=== PATIENT | female | born 1990 | race African-American/Black ===

== ENCOUNTER 2018-03-08 17:19 | Inpatient (IN) | payer OTHER ==
[~2018-03-08] VITALS: Ht 162.6 cm; Wt 93.4 kg
[~2018-03-08 17:19] MED LIST: IBUPROFEN800 M1 PO
--- NOTE | 2018-03-08 18:09 | History & Physical Pre-Op ---
General Information and HPI History of Present Illness: This patient is a 27-year-old 8 para 3 EDC 03/09/2018 at 39 weeks and 6 days who presents with spontaneous rupture of membranes clear fluid in active labor. 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 Past OB history significant for 3. Allergies/Medications Allergies: Coded Allergies: No Known Allergies (05/28/16) Home Med list Ibuprofen 800 MG TABLET 800 MG PO Q6P PRN UTERINE CRAMPING Past History Surgical History Pertinent Surgical History: D&C Past Family/Social History Psychosocial History Smoking Status: Former Smoker Review of Systems Review of Systems Constitutional: Reports: no symptoms. EENTM: Reports: no symptoms. Cardiovascular: Reports: no symptoms. Respiratory: Reports: no symptoms. GI: Reports: abdominal pain. Genitourinary: Reports: see HPI. Musculoskeletal: Reports: back pain. Skin: Reports: no symptoms. Neurological/Psychological: Reports: no symptoms. Hematologic/Endocrine: Reports: no symptoms. Immunologic/Allergic: Reports: no symptoms. All Other Systems: Reviewed and Negative Exam & Diagnostic Data Last 24 Hrs of Vital Signs/I&O Blood pressure 122/78 Physical Exam: HEENT normocephalic atraumatic Chest: Clear to auscultation bilaterally Abdomen: Gravid cephalic estimated weight 7-1/2 pounds Pelvic 9.5 cm -2 station Extremities: No clubbing cyanosis or edema Assessment/Plan Assessment/Plan: Spontaneous rupture of membranes at term Expectant management As Ranked By This Provider Problem List: 1.
[2018-03-08 18:18] LABS: ABSOLUTE BASOPHIL COUNT 0 /CUMM (0.0-0.2); ABSOLUTE EOSINOPHIL COUNT 0.1 /CUMM (0.0-0.7); ABSOLUTE GRANULOCYTE CT 5.4 /CUMM (1.4-6.5); ABSOLUTE LYMPH COUNT 2.1 /CUMM (1.2-3.4); ABSOLUTE MONOCYTE COUNT 0.6 /CUMM (0.10-0.60); BASOPHIL % 0.3 % (0.0-2.0); EOSINOPHIL % 0.8 % (0-5); GRANULOCYTE % 66.1 % (42.2-75.2); HEMATOCRIT 34.1 % (37-47); MEAN CORPUSCULAR HGB 31.2 PG (27.0-31.0); MEAN CORPUSCULAR HGB CONC 32.5 G/DL (33.0-37.0); MEAN CORPUSCULAR VOLUME 95.9 FL (81.0-99.0); MEAN PLATELET VOLUME 12.4 FL (7.4-10.4); PLATELET COUNT 177 /CUMM (130-400); RBC DISTRIBUTION WIDTH 14.6 % (11.5-14.5); RED BLOOD CELL CT 3.56 /CUMM (4.20-5.40); WHITE BLOOD CELL COUNT 8.2 /CUMM (4.8-10.8)
[2018-03-09 07:59] LABS: ABSOLUTE BASOPHIL COUNT 0 /CUMM (0.0-0.2); ABSOLUTE EOSINOPHIL COUNT 0.1 /CUMM (0.0-0.7); ABSOLUTE GRANULOCYTE CT 6.9 /CUMM (1.4-6.5); ABSOLUTE LYMPH COUNT 2.1 /CUMM (1.2-3.4); BASOPHIL % 0.4 % (0.0-2.0); EOSINOPHIL % 1.2 % (0-5); GRANULOCYTE % 68.3 % (42.2-75.2); HEMATOCRIT 30.9 % (37-47); MEAN CORPUSCULAR HGB 31.2 PG (27.0-31.0); MEAN CORPUSCULAR HGB CONC 32.7 G/DL (33.0-37.0); MEAN CORPUSCULAR VOLUME 95.4 FL (81.0-99.0); MEAN PLATELET VOLUME 13.3 FL (7.4-10.4); PLATELET COUNT 153 /CUMM (130-400); RBC DISTRIBUTION WIDTH 14.6 % (11.5-14.5); RED BLOOD CELL CT 3.24 /CUMM (4.20-5.40); WHITE BLOOD CELL COUNT 10.1 /CUMM (4.8-10.8)
[2018-03-10] MEDS ORDERED: IBUPROFEN800 M1 PO (10:27)
--- NOTE | 2018-03-10 10:34 | Labor & Delivery Summary ---
Delivery Summary Vaginal Delivery: Vaginal: vertex Episiotomy/Lacerations: Episiotomy/Lacerations: none Placenta: Placenta: spontanteous, normal, 3 vessel Anesthesia: none Baby's Weight: 7-8 Apgars - 1 Min: 9 Apgars - 5 Min: 9
== END 2018-03-10 11:30 | DRG 560 ==
LOC: CBCO 17:19 → GNO 17:28
PROVIDERS: Obstetrics & Gynecology
PROC: 10E0XZZ Delivery of Products of Conception, External Approach (ICD-10-PCS; principal; 2018-03-08)
DX: O80 Encounter for full-term uncomplicated delivery (principal); Z3A.39 39 weeks gestation of pregnancy; Z37.0 Single live birth
CPT/HCPCS: GNOS; 84112; J3490; J7120

== ENCOUNTER 2018-06-29 21:58 | Emergency (ER) | payer OTHER ==
[2018-06-29 23:12] LABS: ABSOLUTE BASOPHIL COUNT 0 /CUMM (0.0-0.2); ABSOLUTE EOSINOPHIL COUNT 0.1 /CUMM (0.0-0.7); ABSOLUTE LYMPH COUNT 1.3 /CUMM (1.2-3.4); ABSOLUTE MONOCYTE COUNT 0.4 /CUMM (0.10-0.60); BASOPHIL % 0.4 % (0.0-2.0); EOSINOPHIL % 1.2 % (0-5); GRANULOCYTE % 62.8 % (42.2-75.2); HEMATOCRIT 35.8 % (37-47); MEAN CORPUSCULAR HGB 32.6 PG (27.0-31.0); MEAN CORPUSCULAR VOLUME 98.8 FL (81.0-99.0); MEAN PLATELET VOLUME 10.3 FL (7.4-10.4); PLATELET COUNT 197 /CUMM (130-400); RBC DISTRIBUTION WIDTH 13.7 % (11.5-14.5); RED BLOOD CELL CT 3.62 /CUMM (4.20-5.40); WHITE BLOOD CELL COUNT 4.8 /CUMM (4.8-10.8)
--- NOTE | 2018-06-29 23:20 | ED GI/GU/ABDOMINAL COMPLAINT ---
History of Present Illness General Chief Complaint: General Adult Stated Complaint: TOOK PILL AT HOME HEAVY BLEEDING Source: patient Exam Limitations: no limitations Vital Signs & Intake/Output Vital Signs & Intake/Output Vital Signs Date Time Temp Pulse Resp B/P B/P Pulse O2 O2 Flow FiO2 Mean Ox Delivery Rate 06/29 2331 98.3 73 17 115/72 99 Room Air 06/29 2204 98.5 96 17 127/84 99 Room Air ED Intake and Output 06/30 0000 06/29 1200 Intake Total Output Total Balance Patient 181 lb Weight Weight Reported by Patient Measurement Method Allergies Coded Allergies: No Known Allergies (05/28/16) Reconcile Medications Ibuprofen 800 MG TABLET 800 MG PO Q6P PRN UTERINE CRAMPING Triage Note: PT TO ED WITH C/O HEAVY VAGINAL BLEEDING S/P TAKING MEDICAL PILL MIFEPRISTONE AT HOME AT 5 PM TODAY. STATES INSTRUCTIONS TO GO TO ED IF SOAKING THROUGH TWO MAXI PADS/HR FOR 2 HOURS STRAIGHT. REPORTS BASELINE ANEMIA AND IS WORRIED ABOUT BLOOD LOSS. INTERMITTENT LIGHT HEADEDNESS. Triage Nurses Notes Reviewed? yes ? y Is pt currently ? No Onset: Abrupt Duration: hour(s):, constant Timing: single episode today HPI: 28-year-old female comes into the emergency room for further evaluation after take an pill at home. She is approximately 7 weeks . She took the pill around 5 PM. Patient reports that her few hours later the bleeding became very heavy. She's gone through multiple pads and came to the emergency room for further evaluation. She felt slightly lightheaded before but those symptoms resolved. (Russell Ashby) Past History Travel History Traveled to [place] past 21 day No Medical History Any Pertinent Medical History? see below for history Blood Disorders: anemia Surgical History Surgical History: D&C Psychosocial History What is your primary language Luxembourgish Tobacco Use: Never used Family History Hx Contributory? No (Russell Ashby) Review of Systems Review of Systems Constitutional: Reports: no symptoms. EENTM: Reports: no symptoms. Respiratory: Reports: no symptoms. Cardiovascular: Reports: no symptoms. GI: Reports: no symptoms. Genitourinary: Reports: see HPI. Musculoskeletal: Reports: no symptoms. Skin: Reports: no symptoms. Neurological/Psychological: Reports: no symptoms. Hematologic/Endocrine: Reports: see HPI. Immunologic/Allergic: Reports: no symptoms. All Other Systems: Reviewed and Negative (Russell Ashby) Physical Exam Physical Exam General Appearance: well developed/nourished, no apparent distress, alert, awake Head: atraumatic Eyes: Bilateral: normal appearance. Ears, Nose, Throat, Mouth: hearing grossly normal, moist mucous membrane Neck: normal inspection Respiratory: no respiratory distress Gastrointestinal: soft, tenderness, no guarding, no rebound tenderness Back: normal inspection Extremities: normal range of motion Neurologic/Psych: awake, alert, oriented x 3 Skin: intact, normal color Core Measures ACS in differential dx? No Sepsis Present: No Sepsis Focused Exam Completed? No (Russell Ashby) Progress Differential Diagnosis: , anemia, Plan of Care: Orders Procedure Date/time Status CBC WITHOUT DIFFERENTIAL 06/29 2257 Complete Laboratory Tests 06/29/185: CBC w Diff NO MAN DIFF REQ, RBC 3.62 L, MCV 98.8, MCH 32.6 H, MCHC 33.0, RDW 13.7, MPV 10.3, Gran % 62.8, Lymphocytes % 27.9, Monocytes % 7.7, Eosinophils % 1.2, Basophils % 0.4, Absolute Granulocytes 3.0, Absolute Lymphocytes 1.3, Absolute Monocytes 0.4, Absolute Eosinophils 0.1, Absolute Basophils 0 Initial ED EKG: none (Russell Ashby) Departure Departure Disposition: HOME OR SELF CARE Condition: Stable Clinical Impression Primary Impression: in first trimester Referrals: Nadja Bergman APRN (PCP/Family) Additional Instructions: Follow-up with [facility] doctor next week for beta hCG titer and ultrasound and repeat CBCs. Please go over all results of today's visit with your primary care doctor. Contact your primary care doctor to let them know you were here in the emergency room. There may be nonspecific findings which may not be related to your visit today here in the emergency room but may require further evaluation and chronic monitoring by your primary care doctor. If you had a laceration today the chance of foreign body always remains. You should follow-up with your primary care doctor for recheck in 3-5 days for a wound check. If you had an x-ray done there is a chance that a fracture could have been missed on initial read and you should follow-up with your primary care doctor for repeat x-rays if symptoms persist. If your blood pressure was elevated here in the emergency room please have rechecked by [facility] primary care doctor within the next 48. If you were prescribed a narcotic here in the emergency room or any type of controlled substances you're not allowed to drive while taking this medication or operate any type of heavy machinery. Narcotics can make you feel lightheaded dizziness nausea and can cause constipation. You may need to steel pickler a stool softener. Thank you for choosing [facility] emergency room. Please return to the emergency room immediately if you have any other concerns worsening of symptoms. Departure Forms: Customer Survey General Discharge Information Comments 06/29/2018 11:35:11 PM Patient clinically looks well. In no apparent distress. Nontoxic-appearing. Hemodynamically stable. Patient was told it is normal to have heavy vaginal bleeding after pill and was told to follow-up with patent engineer this week for reevaluation. (Tobi PAYNE,Russell) PA/AUTO PARTS PROFESSIONAL Co-Sign Statement Statement: ED Attending supervision documentation- I saw and evaluated the patient. I have also reviewed all the pertinent lab results and diagnostic results. I agree with the findings and the plan of care as documented in the PA's/AUTO PARTS PROFESSIONAL's documentation. x I have reviewed the ED Record and agree with the PA's/AUTO [employer]S PROFESSIONAL's documentation. [] Additions or exceptions (if any) to the PAs/AUTO PARTS PROFESSIONAL's note and plan are summarized below: [] (Rocky DE LEON,Akhil)
[2018-06-29 23:31] VITALS: BP 115/72
== END 2018-06-29 23:32 ==
LOC: ERH 21:58
PROVIDERS: Physician Assistant Medical
DX: O03.9 Complete or unspecified spontaneous abortion without complication (principal)